=== PATIENT | female | born 1995 | race Caucasian/White ===

== ENCOUNTER 2021-03-14 21:05 | Emergency (ER) | payer MEDICARE, OTHER, MEDICAID, SELFPAY ==
[2021-03-14 21:21] VITALS: BP 116/86; PULSE 110; RESP 18; TEMP 36.9; O2SAT 99
--- NOTE | 2021-03-14 21:30 | ECG_ITS ---
Measurements Intervals [place] Rate: 90 P: 68 [place]: 132 QRS: 46 QRSD: 67 T: 53 QT: 344 QTc: 422 Interpretive Statements SINUS RHYTHM NORMAL ECG Electronically Signed On 03-15-2021 6:41:40 [employer] by Masood Clark D.O.
[2021-03-14 22:17] LABS: Basophils Percent Auto 0.3 % (0.2-1.2); Eosinophils Absolute Auto 0.1 K/mm3 (0-0.3); Hematocrit 32.2 % (37.0-47.0); Hemoglobin 10.3 g/dL (12.0-15.0); Immature Granulocyte Absolute 0.02 K/mm3 (0.00-0.031); Immature Granulocyte Percent A 0.3 % (0-0.5); Lymphocytes Absolute Auto 1.19 K/mm3 (0.9-3.2); Lymphocytes Percent Auto 19.9 % (18.3-44.2); Mean Corpuscular Hemoglobin 29.6 pg (26-34); Mean Corpuscular Volume 92.5 fl (80-100); Monocytes Absolute Auto 0.6 K/mm3 (0.1-0.6); Monocytes Percent Auto 9.9 % (2.6-8.5); Neutrophils Absolute Auto 4.1 K/mm3 (1.3-6.7); Neutrophils Percent Auto 68.6 % (45.5-73.1); Platelet Count Result 288 k/mm3 (150-375); Red Blood Count 3.48 M/mm3 (4.2-5.4); Red Cell Distribution Width 12.5 % (11.5-14.5)
--- NOTE | 2021-03-14 22:22 | ED.GENADULT ---
HPI - General Adult General Chief complaint: Psychiatric Symptoms Stated complaint: SI/HI Time Seen by Provider: 03/14/21 21:12 History of Present Illness HPI narrative: Patient is a 25-year-old female presents the emergency department with chief complaint of depression and suicidal thoughts. Patient reports that 3 to 4 weeks ago she had an elective and has had difficulty with her family since the event. Patient states she is been rather depressed reports has been having thoughts of hurting herself but does not have a defined plan at this time. Patient reports has been hospitalized before in the past for psychiatric reasons reports that the symptoms or not improved by anything or they worsened by anything. Review of Systems Review of Systems: A 10 system review of systems was completed on the patient and is negative except for what is stated in the HPI. Nursing and ancillary documentation was reviewed. [facility] Social History Social History Substance use type: amphetamines Exam Narrative: GENERAL: Well-appearing, well-nourished, and in no acute distress. HEAD: Normocephalic, atraumatic. EYES: PERRLA and EOMI. ENT: Nares clear, no rhinorrhea or epistaxis. Mucous membranes moist. NECK: Supple. CHEST: Clear to auscultation. No respiratory distress. HEART: Regular rate and rhythm. No murmur heard. Normal peripheral pulses. ABDOMEN: Soft, nontender, nondistended, normal active bowel sounds. EXTREMITIES: Normal range of motion. No edema. SKIN: Warm, dry, no rash. NEURO: No focal deficits. Alert and oriented x3. PSYCH: Normal mood and affect. Course Course Emergency Course: Patient is medically cleared for psychiatric evaluation Patient was seen by the screener and cleared for outpatient follow-up the patient was able to contract for safety. Vital Signs Vital signs: Vital Signs Temperature 36.9 C 03/14/21 21: Pulse Rate 110 H 03/14/21 21:21 Respiratory Rate 18 03/14/21 21:21 Blood Pressure 116/86 03/14/21 21:21 Pulse Oximetry 99 03/14/21 21:21 Temperature 36.9 C 03/14/21 21:21 Pulse Rate 110 H 03/14/21 21:21 Respiratory Rate 18 03/14/21 21:21 Blood Pressure 116/86 03/14/21 21:21 Pulse Oximetry 99 03/14/21 21:21 Medical Decision Making Vital Signs Vital Signs: Vital Signs Temperature 36.9 C 03/14/21 21:21 Pulse Rate 110 H 03/14/21 21:21 Respiratory Rate 18 03/14/21 21:21 Blood Pressure 116/86 03/14/21 21:21 Pulse Oximetry 99 03/14/21 21:21 Temperature 36.9 C 03/14/21 21:21 Pulse Rate 110 H 03/14/21 21:21 Respiratory Rate 18 03/14/21 21:21 Blood Pressure 116/86 03/14/21 21:21 Pulse Oximetry 99 03/14/21 21:21 Lab Data Result diagrams: 03/14/21 22:07 03/14/21 22:07 Labs: Lab Results 03/14/21 03/14/21 03/14/21 Range/Units 22:06 22:07 22:07 WBC 6.0 (4.5-10.0) K/mm3 RBC 3.48 L (4.2-5.4) M/mm3 Hgb 10.3 L (12.0-15.0) g/dL Hct 32.2 L (37.0-47.0) % MCV 92.5 (80-100) fl MCH 29.6 (26-34) pg MCHC 32.0 (32-36) g/dl RDW 12.5 (11.5-14.5) % Plt Count 288 (150-375) k/mm3 MPV 9.0 (7.4-10.4) fl Immature Gran % (Auto) 0.3 (0-0.5) % Neut % (Auto) 68.6 (45.5-73.1) % Lymph % (Auto) 19.9 (18.3-44.2) % [place] % (Auto) 9.9 H (2.6-8.5) % Eos % (Auto) 1.0 (0-4.4) % Baso % (Auto) 0.3 (0.2-1.2) % Lymph # (Auto) 1.19 (0.9-3.2) K/mm3 [place] # (Auto) 0.6 (0.1-0.6) K/mm3 Eos # (Auto) 0.1 (0-0.3) K/mm3 Baso # (Auto) 0.0 (0.0-0.1) K/mm3 Abs Immat Gran (auto) 0.02 (0.00-0.031) K/mm3 Absolute Neuts (auto) 4.1 (1.3-6.7) K/mm3 Absolute Nucleated RBC 0.0 (0.0-0.012) K/mm3 Nucleated RBC % 0.0 (0.0-0.2) % Sodium (137-145) mmol/L Potassium (3.4-5.0) mmol/L Chloride (98-107) mmol/L Carbon Dioxide (22-30) mmol/L Anion Gap (8-16) mm
[2021-03-14 22:25] LABS: Add Urine Microscopic? YES; Appearance Urine Cloudy (Clear); Bacteria Urine Trace /hpf; Bilirubin Urine Negative (Negative); Blood Urine 2+ (Negative); Color Urine Yellow (Yellow); Glucose Urine UA Negative (Negative); Ketones Urine Negative (Negative); Leukocyte Esterase Ur Trace LEU/UL (Negative); Mucus Urine Moderate /lpf; Nitrate Urine Negative (Negative); Protein Urine 2+ mg/dL (Negative); RBC Urine 21-50 /hpf (0-2); Specific Grav Ur 1.025 (1.001-1.035); Squamous Epithelial Cell Urine Many /hpf (Few); Urobilinogen Urine Negative mg/dL (<2.0); WBC Urine 0-3 /hpf
[2021-03-14 22:26] LABS: Alanine Aminotransferase 11 U/L (4-35); Albumin Level 4.1 g/dL (3.5-5.1); Alkaline Phosphatase 69 U/L (38-126); Anion Gap 11 mmol/L (8-16); Aspartate Amino Transferase 19 U/L (14-36); Bilirubin,Total 0.3 mg/dL (0.2-1.3); Blood Urea Nitrogen 6 mg/dL (7-17); Calcium 9.6 mg/dL (8.4-10.2); Carbon Dioxide 26 mmol/L (22-30); Chloride 102 mmol/L (98-107); Estimated Glomerular Filt Rate > 60; Ethanol < 10 mg/dL (<10); Glucose 99 mg/dL (65-110); Potassium 4.1 mmol/L (3.4-5.0); Sodium 139 mmol/L (137-145)
[2021-03-14 22:27] LABS: Acetaminophen < 10 ug/mL (10-30); Salicylate < 1.0 mg/dL (2-20)
[2021-03-14 22:35] LABS: Barbiturate Screen Urine Negative (Negative); Benzodiazepines Screen Urine Positive (Negative)
[2021-03-14 22:46] LABS: Cannabinoid Screen Urine Positive (Negative); Cocaine Screen Urine Negative (Negative); Methadone Screen Urine Negative (Negative); Opiate Screen Urine Negative (Negative); Phencyclidine Screen Urine Negative (Negative)
[2021-03-14 22:55] LABS: Amphetamine Screen Urine Positive (Negative)
[2021-03-14 23:47] LABS: Pregnancy On Board Control POS; Urine Pregnancy Test Positive
--- NOTE | 2021-03-15 00:48 | PC.NURSE ---
Pt has been medically cleared by EDP Dr. Zhang at this time.
--- NOTE | 2021-03-15 00:51 | PC.NURSE ---
Spoke with Addison at [facility] at this time.
[2021-03-15 01:40] LABS: Beta HCG Quantitative 104.47 mIU/ML
--- NOTE | 2021-03-15 02:40 | PC.NURSE ---
therapeutic activities services worker in room assessing pt at this time.
--- NOTE | 2021-03-15 03:42 | PC.NURSE ---
Spoke with dry cure worker and he will be recommending the pt be discharged with a safety plan. He will speak with Dr. Zhang.
[2021-03-15 05:05] VITALS: BP 136/101; PULSE 99; RESP 16; O2SAT 100
== END 2021-03-15 05:06 | disposition home or self-care (01) ==
PROVIDERS: Emergency Provider Emergency Medicine
DX: F32.A Depression, unspecified (principal)
CPT/HCPCS: 36415; 80053; 80307; 81001; 81025; 84702; 85025; 93005; 99284